=== PATIENT | female | born 1990 | race Two or more races ===

== ENCOUNTER 2024-07-05 12:05 | Inpatient (IN) | payer OTHER ==
[~2024-07-05] VITALS: Ht 165.1 cm; Wt 78.5 kg
[2024-07-05] MEDS ORDERED: VISTARIL25 MG (13:16)
[2024-07-05] MEDS ORDERED: LEXAPRO5 MG (13:16)
[2024-07-05] MEDS ORDERED: AMBIEN5 MG (13:16)
[2024-07-05] MEDS ORDERED: RINGERS SOLUTION,LACTATED 1,000 ML IV STA (14:53)
[2024-07-05] MEDS ORDERED: MEPERIDINE HCL/PF 50 MG/ML VIAL IM STA (14:54)
[2024-07-05 15:42] LABS: HEMATOCRIT 43.5 % (36.0-45.00); HEMOGLOBIN 14.9 g/dL (12.0-15.00); MEAN CELL VOLUME 88.6 fL (80.00-100.00); MEAN CORPUSCULAR HEMOGLOBIN 30.4 pg (27.00-32.0); MEAN CORPUSCULAR HGB CONC 34.3 g/dl (32.0-36.0); PLATELET COUNT 245 K/uL (150-450); RED CELL DISTRIBUTION WIDTH 12.8 % (11.5-14.5)
[2024-07-05 15:55] LABS: PARTIAL THROMBOPLASTIN TIME 22.8 SECONDS (22.0-34.0); PROTHROMBIN TIME 10.9 SECONDS (9.0-11.5)
[2024-07-05 16:06] LABS: BILIRUBIN TOTAL 2.73 mg/dL (0.3-1.2); BILIRUBIN,CONJUGATED 1.55 mg/dL (0.0-0.2); BILIRUBIN,UNCONJUGATED 1.18 mg/dL (0.0-0.6); CREATININE SERUM 0.6 mg/dL (0.55-1.02); GFR 116.6; POTASSIUM 3.65 mEq/L (3.5-5.1); TOTAL PROTEIN 7.7 gm/dL (6.4-8.2)
[2024-07-05 16:17] LABS: PH,URINE 5.5 (5.0-8.0); URINE APPEARANCE Clear; URINE BILIRRUBIN Small (NEGATIVE); URINE BLOOD Negative; URINE COLOR Dark Yellow; URINE GLUCOSE Negative (NEGATIVE); URINE LEUKOCYTE Small; URINE NITRATE Negative; URINE PROTEIN Negative (NEGATIVE)
[2024-07-05 16:21] LABS: URINE BACTERIA 558.1 uL (0.0-1933); URINE EPITHELIAL CELLS 7.2 uL (0.0-38.8); URINE RBC 3.6 uL (0.0-20.8); URINE WBC 11.2 uL (0.0-23.2)
[2024-07-05 16:26] LABS: URINE KETONE 40 (NEGATIVE)
[2024-07-05] MEDS ORDERED: 0.9 % SODIUM CHLORIDE 1,000 ML IV STA (16:35)
[2024-07-05] MEDS ORDERED: MORPHINE SULFATE 2 MG/ML SYRINGE IV ONE (16:45)
[2024-07-05] MEDS ORDERED: FAMOTIDINE/PF 20 MG/2 ML VIAL IV ONE (16:45)
[2024-07-05] MEDS ORDERED: PIPERACILLIN/TAZOBACTAM SODIUM 3.375 GM in DEXTROSE 5 % IN WATER 100 ML IV SCH (19:08)
[2024-07-05] MEDS ORDERED: hydrOXYzine PAMOATE 25 MG CAPSULE PO SCH (19:09)
[2024-07-05] MEDS ORDERED: 0.9 % SODIUM CHLORIDE 1,000 ML IV SCH (19:15)
[2024-07-05] MEDS ORDERED: ONDANSETRON HCL 4 MG in 0.9 % SODIUM CHLORIDE 50 ML IV PRN (19:15)
[2024-07-05] MEDS ORDERED: MEPERIDINE HCL/PF 25 MG/ML VIAL IM PRN (19:15)
[2024-07-05] MEDS ORDERED: ZOLPIDEM TARTRATE 5 MG TABLET PO SCH (21:00)
[2024-07-05] MEDS ORDERED: MEPERIDINE HCL/PF 25 MG/ML VIAL IM ONE (22:00)
[2024-07-05 22:10] LABS: C-REACTIVE PROTEIN 0.52 MG/DL (0.00-0.29); HCG QUANTITATIVE < 1 mUI/mL (1-3)
[2024-07-05 22:30] VITALS: BP 112/73; O2SAT 97
[2024-07-06 02:06] VITALS: BP 90/54; O2SAT 97
[2024-07-06 07:14] LABS: BILIRUBIN TOTAL 2.33 mg/dL (0.3-1.2); BILIRUBIN,CONJUGATED 0.85 mg/dL (0.0-0.2); BILIRUBIN,UNCONJUGATED 1.48 mg/dL (0.0-0.6); CALCIUM 8.4 mg/dL (8.5-10.1); CREATININE SERUM 0.52 mg/dL (0.55-1.02); GFR 137.54; GLOBULINA 2.7 G/DL (2.4-3.5); POTASSIUM 3.62 mEq/L (3.5-5.1); TOTAL PROTEIN 5.7 gm/dL (6.4-8.2)
[2024-07-06 08:05] VITALS: BP 105/70; O2SAT 98
[2024-07-06] MEDS ORDERED: PANTOPRAZOLE SODIUM 40 MG/VIAL VIAL IV SCH (09:00)
[2024-07-06 18:53] VITALS: BP 127/60
[2024-07-07 02:58] VITALS: BP 119/64
[2024-07-07 06:09] LABS: HEMATOCRIT 36.9 % (36.0-45.00); HEMOGLOBIN 12.6 g/dL (12.0-15.00); MEAN CELL VOLUME 88.9 fL (80.00-100.00); MEAN CORPUSCULAR HEMOGLOBIN 30.4 pg (27.00-32.0); MEAN CORPUSCULAR HGB CONC 34.2 g/dl (32.0-36.0); PLATELET COUNT 196 K/uL (150-450); RED BLOOD COUNT 4.15 M/uL (4.00-6.00); RED CELL DISTRIBUTION WIDTH 12.2 % (11.5-14.5)
[2024-07-07 06:37] LABS: BILIRUBIN TOTAL 1.8 mg/dL (0.3-1.2); CREATININE SERUM 0.38 mg/dL (0.55-1.02); GFR 197.53; GLOBULINA 2.8 G/DL (2.4-3.5); MAGNESIUM 1.7 mg/dL (1.8-2.4); PHOSPHOROUS 3.6 mg/dL (2.5-4.9); POTASSIUM 3.56 mEq/L (3.5-5.1); TOTAL PROTEIN 5.8 gm/dL (6.4-8.2)
[2024-07-07 09:06] VITALS: BP 120/55
[2024-07-07 17:53] VITALS: BP 109/55
[2024-07-07] MEDS ORDERED: hydrOXYzine PAMOATE 25 MG CAPSULE PO SCH (21:00)
[2024-07-08 02:32] VITALS: BP 118/68
[2024-07-08] MEDS ORDERED: MEPERIDINE HCL/PF 25 MG/ML VIAL IM PRN (05:45)
[2024-07-08 06:40] LABS: HEMATOCRIT 36.5 % (36.0-45.00); HEMOGLOBIN 13.1 g/dL (12.0-15.00); MEAN CELL VOLUME 86.3 fL (80.00-100.00); MEAN CORPUSCULAR HEMOGLOBIN 31.1 pg (27.00-32.0); PLATELET COUNT 210 K/uL (150-450); RED BLOOD COUNT 4.22 M/uL (4.00-6.00); RED CELL DISTRIBUTION WIDTH 12.4 % (11.5-14.5)
[2024-07-08 08:37] VITALS: BP 112/56
[2024-07-08 11:23] LABS: ALBUMIN 3.6 gm/dL (3.4-5.0); BILIRUBIN TOTAL 1.76 mg/dL (0.3-1.2); CALCIUM 8.5 mg/dL (8.5-10.1); CREATININE SERUM 0.48 mg/dL (0.55-1.02); GFR 150.85; GLOBULINA 3.3 G/DL (2.4-3.5); TOTAL PROTEIN 6.9 gm/dL (6.4-8.2)
[2024-07-08 11:58] LABS: BILIRUBIN,CONJUGATED 0.37 mg/dL (0.0-0.2); BILIRUBIN,UNCONJUGATED 1.39 mg/dL (0.0-0.6); POTASSIUM 4.21 mEq/L (3.5-5.1)
[2024-07-08 17:37] VITALS: BP 143/76
[2024-07-09 03:13] VITALS: BP 119/65
[2024-07-09 08:38] LABS: ALBUMIN 3.1 gm/dL (3.4-5.0); BILIRUBIN TOTAL 1.23 mg/dL (0.3-1.2); CALCIUM 8.5 mg/dL (8.5-10.1); CREATININE SERUM 0.43 mg/dL (0.55-1.02); GFR 171.26; GLOBULINA 2.9 G/DL (2.4-3.5); POTASSIUM 3.3 mEq/L (3.5-5.1)
[2024-07-09 09:25] VITALS: BP 117/69; O2SAT 99
[2024-07-09] MEDS ORDERED: POTASSIUM CHLORIDE 10 MEQ CAPSULE PO NR (10:15)
== END 2024-07-09 15:39 | disposition home or self-care (01) | DRG 446 ==
LOC: ER 12:06 → MEDI 19:43
PROVIDERS: General Practice; Internal Medicine; Surgery; ADMIT Internal Medicine; ATTEND Internal Medicine
PROC: BW40ZZZ Ultrasonography of Abdomen (ICD-10-PCS; principal; 2024-07-05)
PROC: BF37ZZZ Magnetic Resonance Imaging (MRI) of Pancreas (ICD-10-PCS; 2024-07-05)
DX: K80.00 Calculus of gallbladder with acute cholecystitis without obstruction (principal)

== ENCOUNTER 2024-07-20 14:17 | Inpatient (IN) | payer OTHER ==
[~2024-07-20] VITALS: Ht 165.1 cm; Wt 77.1 kg
[~2024-07-20 14:17] MED LIST: AMBIEN5 MG; LEXAPRO5 MG; VISTARIL25 MG
[2024-07-20] MEDS ORDERED: 0.9 % SODIUM CHLORIDE 1,000 ML IV ONE (16:15)
[2024-07-20] MEDS ORDERED: FAMOTIDINE/PF 20 MG/2 ML VIAL IV ONE (16:15)
[2024-07-20] MEDS ORDERED: KETOROLAC TROMETHAMINE 30 MG VIAL IV ONE (16:15)
[2024-07-20] MEDS ORDERED: ONDANSETRON HCL 2 MG/ML VIAL IV ONE (16:15)
[2024-07-20 16:30] LABS: HEMATOCRIT 37.5 % (36.0-45.00); HEMOGLOBIN 13.2 g/dL (12.0-15.00); MEAN CELL VOLUME 87.1 fL (80.00-100.00); MEAN CORPUSCULAR HEMOGLOBIN 30.7 pg (27.00-32.0); MEAN CORPUSCULAR HGB CONC 35.2 g/dl (32.0-36.0); PLATELET COUNT 244 K/uL (150-450); RED CELL DISTRIBUTION WIDTH 12.8 % (11.5-14.5)
[2024-07-20 16:38] LABS: PH,URINE 7.5 (5.0-8.0); URINE APPEARANCE Clear; URINE BILIRRUBIN Negative (NEGATIVE); URINE BLOOD Negative; URINE COLOR Yellow; URINE GLUCOSE Negative (NEGATIVE); URINE KETONE Negative (NEGATIVE); URINE LEUKOCYTE Negative; URINE NITRATE Negative; URINE PROTEIN Negative (NEGATIVE)
[2024-07-20 16:42] LABS: URINE BACTERIA 47.7 uL (0.0-1933); URINE EPITHELIAL CELLS 5.3 uL (0.0-38.8)
[2024-07-20 16:46] LABS: INR 1.05; PARTIAL THROMBOPLASTIN TIME 25.4 SECONDS (22.0-34.0); PROTHROMBIN TIME 11.4 SECONDS (9.0-11.5)
[2024-07-20 16:50] LABS: URINE RBC 1.7 uL (0.0-20.8); URINE WBC 1.7 uL (0.0-23.2)
[2024-07-20 16:58] LABS: ALBUMIN 3.4 gm/dL (3.4-5.0); BILIRUBIN TOTAL 1.64 mg/dL (0.3-1.2); BILIRUBIN,CONJUGATED 0.97 mg/dL (0.0-0.2); BILIRUBIN,UNCONJUGATED 0.67 mg/dL (0.0-0.6); CALCIUM 8.6 mg/dL (8.5-10.1); CREATININE SERUM 0.48 mg/dL (0.55-1.02); GFR 150.85; GLOBULINA 3.4 G/DL (2.4-3.5); POTASSIUM 3.55 mEq/L (3.5-5.1); TOTAL PROTEIN 6.8 gm/dL (6.4-8.2)
[2024-07-20] MEDS ORDERED: FAMOTIDINE/PF 20 MG in 0.9 % SODIUM CHLORIDE 8 ML IV PUSH SCH (19:29)
[2024-07-20] MEDS ORDERED: 0.9 % SODIUM CHLORIDE 1,000 ML IV SCH (19:30)
[2024-07-20] MEDS ORDERED: MORPHINE SULFATE 4 MG/ML CARTRIDGE IV PRN (19:30)
[2024-07-20] MEDS ORDERED: ZOLPIDEM TARTRATE 5 MG TABLET PO SCH (21:00)
[2024-07-21] MEDS ORDERED: PIPERACILLIN/TAZOBACTAM SODIUM 3.375 GM in DEXTROSE 5 % IN WATER 100 ML IV SCH
[2024-07-21 03:18] VITALS: BP 97/60; O2SAT 100
[2024-07-21 07:07] LABS: ALBUMIN 3.1 gm/dL (3.4-5.0); BILIRUBIN TOTAL 0.97 mg/dL (0.3-1.2); BILIRUBIN,CONJUGATED 0.34 mg/dL (0.0-0.2); BILIRUBIN,UNCONJUGATED 0.63 mg/dL (0.0-0.6)
[2024-07-21 07:39] VITALS: BP 92/61; O2SAT 100
[2024-07-21] MEDS ORDERED: LEXAPRO 20 MG PO SCH (09:00)
[2024-07-21] MEDS ORDERED: hydrOXYzine PAMOATE 25 MG CAPSULE PO SCH (09:00)
[2024-07-21 16:05] VITALS: BP 132/72; O2SAT 100
[2024-07-21] MEDS ORDERED: ENOXAPARIN SODIUM 40 MG/0.4 ML SYRINGE SUBCUTANEO SCH (18:00)
[2024-07-21] MEDS ORDERED: ENOXAPARIN SODIUM 40 MG/0.4 ML SYRINGE SUBCUTANEO ONE (18:30)
[2024-07-22 03:51] VITALS: BP 93/60; O2SAT 97
[2024-07-22 07:05] LABS: HEMATOCRIT 34.3 % (36.0-45.00); HEMOGLOBIN 12.1 g/dL (12.0-15.00); MEAN CORPUSCULAR HEMOGLOBIN 31.1 pg (27.00-32.0); MEAN CORPUSCULAR HGB CONC 35.3 g/dl (32.0-36.0); PLATELET COUNT 209 K/uL (150-450); RED CELL DISTRIBUTION WIDTH 12.6 % (11.5-14.5)
[2024-07-22 07:26] LABS: ALBUMIN 2.9 gm/dL (3.4-5.0); BILIRUBIN TOTAL 1.06 mg/dL (0.3-1.2); CALCIUM 8.3 mg/dL (8.5-10.1); CREATININE SERUM 0.46 mg/dL (0.55-1.02); GFR 158.44; GLOBULINA 2.5 G/DL (2.4-3.5); POTASSIUM 3.24 mEq/L (3.5-5.1); TOTAL PROTEIN 5.4 gm/dL (6.4-8.2)
[2024-07-22 08:44] VITALS: BP 96/59; O2SAT 96
[2024-07-22] MEDS ORDERED: ENOXAPARIN SODIUM 40 MG/0.4 ML SYRINGE SUBCUTANEO SCH (12:38)
[2024-07-22] MEDS ORDERED: POTASSIUM CHLORIDE IN WATER 100 ML IV SCH (13:00)
[2024-07-22] MEDS ORDERED: LACTOBACILLUS ACIDOPHILUS 1 CAP CAP PO SCH (17:00)
[2024-07-22 17:44] VITALS: BP 125/61
[2024-07-23 05:14] LABS: CREATININE SERUM 0.45 mg/dL (0.55-1.02); GFR 162.51; POTASSIUM 3.47 mEq/L (3.5-5.1)
[2024-07-23 11:33] VITALS: BP 101/58; O2SAT 99
[2024-07-23 16:39] VITALS: BP 106/62; O2SAT 100
[2024-07-23] MEDS ORDERED: IBUprofen 600 MG TABLET PO PRN (21:30)
[2024-07-24 01:24] VITALS: BP 108/76; O2SAT 98
[2024-07-24] MEDS ORDERED: hydrOXYzine PAMOATE 25 MG CAPSULE PO SCH (09:00)
[2024-07-24 09:17] VITALS: BP 104/59; O2SAT 98
[2024-07-24 17:06] VITALS: BP 112/78; O2SAT 100
[2024-07-25 00:33] VITALS: BP 93/63; O2SAT 95
[2024-07-25 06:25] LABS: HEMATOCRIT 33.4 % (36.0-45.00); HEMOGLOBIN 11.9 g/dL (12.0-15.00); MEAN CELL VOLUME 86.7 fL (80.00-100.00); MEAN CORPUSCULAR HGB CONC 35.8 g/dl (32.0-36.0); PLATELET COUNT 195 K/uL (150-450); RED BLOOD COUNT 3.85 M/uL (4.00-6.00); RED CELL DISTRIBUTION WIDTH 12.8 % (11.5-14.5)
[2024-07-25 06:46] LABS: CALCIUM 8.2 mg/dL (8.5-10.1); CREATININE SERUM 0.41 mg/dL (0.55-1.02); GFR 180.94; POTASSIUM 3.52 mEq/L (3.5-5.1)
[2024-07-25 09:49] VITALS: BP 106/68; O2SAT 98
[2024-07-25] MEDS ORDERED: LIDOCAINE HCL 1%/EPINEPHRINE 20ML VIAL IJ ONE (15:00)
[2024-07-25] MEDS ORDERED: CEFAZOLIN SODIUM 1,000 MG VIAL IV ONE (15:00)
[2024-07-25] MEDS ORDERED: BUPIVACAINE HCL 30 ML VIAL IJ ONE (15:00)
[2024-07-25] MEDS ORDERED: MORPHINE SULFATE 4 MG/ML CARTRIDGE IV PRN (16:15)
[2024-07-25] MEDS ORDERED: ONDANSETRON HCL 2 MG/ML VIAL IV PRN (16:15)
[2024-07-25] MEDS ORDERED: MORPHINE SULFATE 4 MG/ML VIAL IV ONE (17:20)
[2024-07-25 18:15] VITALS: BP 138/83; O2SAT 97
[2024-07-26 00:58] VITALS: BP 115/66; O2SAT 99
[2024-07-26 08:33] VITALS: BP 118/66; O2SAT 97
== END 2024-07-26 10:15 | disposition home or self-care (01) | DRG 417 ==
LOC: ER 14:19 → MEDI 19:53 → SEC-K 19:53 → MEDI 07-21 11:41
PROVIDERS: General Practice; Internal Medicine; Nurse Practitioner Family; Student in an Organized Health Care Education/Training Program; ADMIT Student in an Organized Health Care Education/Training Program; ATTEND Student in an Organized Health Care Education/Training Program
PROC: BF4CZZZ Ultrasonography of Hepatobiliary System, All (ICD-10-PCS; 2024-07-20)
PROC: BF37ZZZ Magnetic Resonance Imaging (MRI) of Pancreas (ICD-10-PCS; 2024-07-20)
PROC: B246ZZZ Ultrasonography of Right and Left Heart (ICD-10-PCS; 2024-07-23)
PROC: BF52200 Other Imaging of Gallbladder using Fluorescing Agent, Indocyanine Green Dye, Intraoperative (ICD-10-PCS; 2024-07-25)
PROC: 0FT44ZZ Resection of Gallbladder, Percutaneous Endoscopic Approach (ICD-10-PCS; principal; 2024-07-25 18:00)
DX: K80.20 Calculus of gallbladder without cholecystitis without obstruction (principal); K85.10 Biliary acute pancreatitis without necrosis or infection; E87.3 Alkalosis; K66.0 Peritoneal adhesions (postprocedural) (postinfection); D64.89 Other specified anemias; E87.6 Hypokalemia; I10 Essential (primary) hypertension; Z98.84 Bariatric surgery status